=== PATIENT | male | born 1990 | race Two or more races ===

== ENCOUNTER 2018-12-08 09:07 | Emergency (ER) | payer OTHER ==
--- NOTE | 2018-12-08 09:34 | ED ---
HPI Febrile Illness - HPI Summary HPI Summary: Patient is a 28-year-old male who presents emergency department for fever, headache, sinus pressure, myalgias that started yesterday. Patient is supposed medical history. Is a daily smoker. Patient denies cough, chest pain, shortness of breath, abdominal pain, vomiting. Does note mild diarrhea. Patient was seen in the ER 20 days ago for similar symptoms and states symptoms have been on-and-off since. Symptoms are mild in severity. No current modifying factors. - History of Current Complaint Chief Complaint: EDFever Time Seen by Provider: 12/08/18 09:31 Hx Obtained From: Patient Pain Intensity: 0 - Allergy/Home Medications Allergies/Adverse Reactions: Allergies Allergy/AdvReac Type Severity Reaction Status Date / Time No Known Allergies Allergy Verified 12/08/18 09:12 PMH/Surg Hx/FS Hx/Imm Hx Previously Healthy: Yes Endocrine/Hematology History: Denies: Hx Diabetes Cardiovascular History: Denies: Hx Hypertension - Surgical History Surgery Procedure, Year, and Place: None Infectious Disease History: No Infectious Disease History: Denies: Traveled Outside the [place] in Last 30 Days - Family History Known Family History: Positive: Non-Contributory Negative: Hypertension, Diabetes - Social History Occupation: Employed Full-time Lives: With Family Alcohol Use: None Hx Substance Use: No Substance Use Type: Reports: None Hx Tobacco Use: Yes Smoking Status (MU): Light Every Day Tobacco Smoker Amount Used/How Often: 2 packs per week Review of Systems Positive: Fever, Chills Eyes: Negative Positive: Nasal Discharge Cardiovascular: Negative Negative: Palpitations, Chest Pain Respiratory: Negative Negative: Shortness Of Breath, Cough Positive: Diarrhea. Negative: Abdominal Pain, Vomiting, Nausea Genitourinary: Negative Negative: burning, dysuria, discharge Positive: Myalgia Skin: Negative Negative: Rash Positive: Headache All Other Systems Reviewed And Are Negative: Yes Physical Exam Triage Information Reviewed: Yes Vital Signs On Initial Exam: Initial Vitals Temp Pulse Resp BP Pulse Ox 100.3 F 106 18 126/77 97 12/08/18 09:09 12/08/18 09:09 12/08/18 09:09 12/08/18 09:09 12/08/18 09:09 Vital Signs Reviewed: Yes Appearance: Positive: Well-Appearing - Pt. sitting up in bed in NAD. Skin: Positive: Warm, Dry Head/Face: Positive: Normal Head/Face Inspection Eyes: Positive: Normal, EOMI, CRUZ, Conjunctiva Clear ENT: Positive: Pharynx normal, TMs normal, Other - Marked sinus pain on palpation over maxillary sinuses. Neck: Positive: Supple, Enlarged Nodes @ - bilateral cervical. Negative: Nuchal Rigidity Respiratory/Lung Sounds: Positive: Clear to Auscultation, Breath Sounds Present. Negative: Rales, Rhonchi, Wheezes Cardiovascular: Positive: Normal, RRR Neurological: Positive: Normal, CN Intact II-III Psychiatric: Positive: Affect/Mood Appropriate Diagnostics - Vital Signs Vital Signs Temp Pulse Resp BP Pulse Ox 12/08/18 09:09 100.3 F 106 18 126/77 97 - Laboratory Lab Statement: Any lab studies that have been ordered have been reviewed, and results considered in the medical decision making process. Course/Dx - Course Course Of Treatment: Patient denies low-grade fever and flulike symptoms. Negative influenza swab. Given ongoing symptoms will treat with antibiotics for sinusitis and Flonase. Anti-inflammatories for pain and fever as directed. To follow-up with her [facility] within 2-3 days. To return to the ER if symptoms change or worsen. Patient understands and agrees with plan. - Diagnoses Provider Diagnoses: Acute bacterial sinusitis Discharge - Sign-Out/Discharge Documenting (check all that apply): Patient Departure Patient Received Moderate/Deep Sedation with Procedure: No - Discharge Plan Condition: Good Disposition: HOME Prescriptions: Amoxicillin/Clavulanate TAB* [Augmentin TAB 875*] 875 mg PO BID 10 Days #20 tab Fluticasone NASAL SPRAY 50MCG* [Flonase NASAL SPRAY 50MCG*] 2 spray BOTH NARES DAILY #1 btl Patient Education Materials: Sinusitis (ED) Forms: *Work Release Referrals: [facility] [Outside] - 2 Days Additional Instructions: Follow up with the [facility] Take medication as directed Increase fluids and rest Tylenol or Motrin for pain and fever control Return to ER if symptoms change or worsen - Billing Disposition and Condition Condition: GOOD Disposition: Home
[2018-12-08 10:13] LABS: Influenza A Molecular NEGATIVE (Negative); Influenza B Molecular NEGATIVE (Negative)
[2018-12-08 10:40] VITALS: BP 99/59
== END 2018-12-08 10:50 | disposition home or self-care (01) ==
LOC: ED 09:07
DX: J01.90 Acute sinusitis, unspecified (principal); R50.9 Fever, unspecified; R51 Headache; R19.7 Diarrhea, unspecified; F17.210 Nicotine dependence, cigarettes, uncomplicated
CPT/HCPCS: 99282